=== PATIENT | female | born 1940 | race Caucasian/White ===

== ENCOUNTER 2023-01-17 12:43 | Emergency (ER) | payer OTHER ==
[2023-01-17 13:17] VITALS: RESP 18; TEMP 98.1; BMI 28.3
[2023-01-17 15:08] LABS: BASO % 0.6 % (0-2.0); EOS % 1.4 % (0-4.5); HEMATOCRIT 38.2 % (32.4-45.2); HEMOGLOBIN 12.2 GM/dL (10.7-15.3); LYMPH % 14.4 % (8-40); MCH 24.2 pg (25.7-33.7); MEAN CELL VOLUME 75.5 fl (80-96); MEAN PLT VOLUME 8.7 fl (7.5-11.1); MONO % 7.9 % (3.8-10.2); NEUT % 75.7 % (42.8-82.8); PLATELET COUNT 654 10^3/uL (134-434); RBC 5.06 M/mm3 (3.60-5.2); RDW 15.4 % (11.6-15.6); WHITE BLOOD COUNT 8.4 K/mm3 (4.0-10.0)
[2023-01-17 15:09] LABS: PH,URINE 6.5 (5.0-8.0); URINE APPEARANCE CLEAR; URINE BILIRUBIN NEGATIVE (NEGATIVE); URINE COLOR YELLOW; URINE GLUCOSE (UA) TRACE (NEGATIVE); URINE KETONE NEGATIVE (NEGATIVE); URINE LEUK ESTERASE NEGATIVE (NEGATIVE); URINE NITRITE NEGATIVE (NEGATIVE); URINE PROTEIN NEGATIVE (NEGATIVE); URINE UROBILINOGEN 0.2 mg/dL (0.2-1.0)
[2023-01-17 15:14] LABS: INR 1.1 (0.83-1.09); PROTHROMBIN TIME (PATIENT) 12.8 SEC (9.7-13.0)
[2023-01-17 15:16] LABS: ACTIVATED PTT 30.7 SECONDS (25.2-36.5)
[2023-01-17 15:30] LABS: CALCIUM 9.7 mg/dL (8.5-10.1)
[2023-01-17 15:31] LABS: ALBUMIN 4.1 g/dl (3.4-5.0); BLOOD UREA NITROGEN 18.2 mg/dL (7-18)
[2023-01-17 15:34] LABS: BILIRUBIN,TOTAL 0.4 mg/dL (0.2-1); CREATININE 1.2 mg/dL (0.55-1.3); TOT PROT 7.8 g/dl (6.4-8.2)
[2023-01-17 16:28] VITALS: BP 132/58; PULSE 85
== END 2023-01-17 18:42 | disposition home or self-care (01) ==
LOC: JER 12:43
DX: R39.15 Urgency of urination (principal); R51.9 Headache, unspecified; M54.2 Cervicalgia; H53.8 Other visual disturbances; R55 Syncope and collapse; Z20.822 Contact with and (suspected) exposure to COVID-19
CPT/HCPCS: 0241U-QW; 36415; 70450-TC; 71045-TC-FY; 80053; 81003; 83880; 84484; 85025; 85610; 85730; 87086; 93005; 93010; 99285-25